=== PATIENT | female | born 1975 | race Caucasian/White ===

== ENCOUNTER 2020-09-14 22:09 | Emergency (ER) | payer BC ==
[~2020-09-14] VITALS: Ht 167.6 cm; Wt 84.0 kg
[2020-09-15 01:35] VITALS: BP 118/70
== END 2020-09-15 01:35 | disposition home or self-care (01) ==
LOC: ER 22:09
DX: T40.7X1A Poisoning by cannabis (derivatives), accidental (unintentional), initial encounter (principal); I10 Essential (primary) hypertension; Y92.89 Other specified places as the place of occurrence of the external cause
CPT/HCPCS: 93005; 99283

== ENCOUNTER 2022-01-20 13:00 | Inpatient (IN) | payer BC ==
[~2022-01-20] VITALS: Ht 165.1 cm; Wt 78.5 kg
[2022-01-20] MEDS ORDERED: MORPHINE SULFATE 4 MG/ML CPJ (NOT FOR IM USE) IV STA (13:27)
[2022-01-20] MEDS ORDERED: ONDANSETRON HCL 4MG/2ML INJ IV STA (13:27)
[2022-01-20] MEDS ORDERED: SODIUM CHLORIDE 0.9% 1,000 ML IV ONE (13:30)
[2022-01-20 13:40] LABS: CLARITY URINE CLEAR (CLEAR); COLOR URINE YELLOW (YELLOW); KETONES URINE TRACE (NEGATIVE); LEUKOCYTE ESTERASE URINE NEGATIVE (NEGATIVE); NITRITE URINE NEGATIVE (NEGATIVE); OCCULT BLOOD URINE NEGATIVE (NEGATIVE); PROTEIN URINE NEGATIVE (NEGATIVE); SPECIFIC GRAVITY URINE 1.023 (1.005-1.030); UROBILINOGEN URINE 0.2 E.U./dL (0.2-1.0)
[2022-01-20 14:30] LABS: BASOPHILS % 0.3 % (0.0-2.0); EOSINOPHILS % 0.3 % (0.0-5.0); HEMATOCRIT. 39.3 % (36.0-48.0); HEMOGLOBIN. 13.1 g/dL (12.0-16.0); LYMPHOCYTES % 18.3 % (20.0-50.0); MEAN CORPUSCULAR HEMOGLOBIN 29.4 pg (28.0-32.0); MEAN CORPUSCULAR VOLUME 88.1 fL (81.0-99.0); MONOCYTES % 3.4 % (2.0-8.0); NEUTROPHILS % 77.7 % (40.0-76.0); PLATELET 228 x1000/uL (130-400); RED BLOOD CELL COUNT 4.46 mill/uL (4.2-5.4); RED CELL DISTRIBUTION WIDTH 13.2 % (11.6-14.6)
[2022-01-20 14:32] LABS: CHLORIDE 108 mEq/L (98-107)
[2022-01-20 14:36] LABS: HCG SCREEN NEGATIVE
[2022-01-20] MEDS ORDERED: MORPHINE SULFATE 4 MG/ML CPJ (NOT FOR IM USE) IV ONE (16:00)
[2022-01-20] MEDS ORDERED: DOCUSATE SODIUM 100MG CAPSULE PO PRN (19:30)
[2022-01-20] MEDS ORDERED: ACETAMINOPHEN 325MG TABLET PO PRN ×2 (19:30)
[2022-01-20] MEDS ORDERED: MAGNESIUM/ALUMINUM HYDROXIDE/SIMETHICONE 30ML UDC PO PRN (19:30)
[2022-01-20] MEDS ORDERED: GUAIFENESIN 200MG/10ML SUGAR FREE UDC PO PRN (19:30)
[2022-01-20] MEDS ORDERED: CLONIDINE 0.1MG TABLET PO PRN (19:30)
[2022-01-20] MEDS ORDERED: ZOLPIDEM TARTRATE 5MG TABLET PO PRN (19:30)
[2022-01-20] MEDS ORDERED: ONDANSETRON HCL 4MG/2ML INJ IV PRN (19:30)
[2022-01-20] MEDS ORDERED: NITROGLYCERIN 0.4MG TABLET SL SL PRN (19:30)
[2022-01-20] MEDS ORDERED: IPRATROPIUM/ALBUTEROL 0.5-3(2.5)MG/3ML NEB NEB PRN (19:30)
[2022-01-20] MEDS: ENOXAPARIN 40MG/0.4ML SYR SUBCUT SCH (20:05)
[2022-01-20] MEDS: KETOROLAC 15MG/ML VIAL IV PRN (20:06)
[2022-01-20] MEDS: DEXT 5%/LACTATED RINGERS 1,000 ML IV SCH (20:07)
[2022-01-20] MEDS: MORPHINE SULFATE 2 MG/ML CPJ (NOT FOR IM USE) IV PRN (22:29)
[2022-01-21 04:35] LABS: BASOPHILS % 0.3 % (0.0-2.0); EOSINOPHILS % 1.2 % (0.0-5.0); HEMATOCRIT. 31.2 % (36.0-48.0); HEMOGLOBIN. 10.7 g/dL (12.0-16.0); LYMPHOCYTES % 51.4 % (20.0-50.0); MEAN CORPUSCULAR HEMOGLOBIN 30.3 pg (28.0-32.0); MEAN CORPUSCULAR VOLUME 88.7 fL (81.0-99.0); MEAN PLATELET VOLUME 8.9 fl (7.4-10.4); MONOCYTES % 4.8 % (2.0-8.0); NEUTROPHILS % 42.3 % (40.0-76.0); PLATELET 188 x1000/uL (130-400); RED BLOOD CELL COUNT 3.52 mill/uL (4.2-5.4); RED CELL DISTRIBUTION WIDTH 12.9 % (11.6-14.6)
[2022-01-21 04:51] LABS: CHLORIDE 112 mEq/L (98-107)
[2022-01-21] MEDS ORDERED: NALOXONE HCL 0.4MG/ML VIAL IV PRN (08:45)
[2022-01-21 08:50] VITALS: BP 115/51
[2022-01-21] MEDS: DEXT 5%/LACTATED RINGERS 1,000 ML IV SCH (09:17)
[2022-01-21] MEDS: PANTOPRAZOLE SODIUM 40 MG/VIAL IV SCH (09:18)
[2022-01-21] MEDS: TRAMADOL 50MG TABLET PO PRN (09:19)
[2022-01-21] MEDS: KETOROLAC 15MG/ML VIAL IV PRN ×2 (13:41→20:28)
[2022-01-21 16:00] VITALS: BP 118/64
[2022-01-21] MEDS ORDERED: HYDR25TA PO (16:53)
[2022-01-21] MEDS ORDERED: LISI40TA13 PO (16:53)
[2022-01-21 20:00] VITALS: BP 121/62
[2022-01-21] MEDS: ENOXAPARIN 40MG/0.4ML SYR SUBCUT SCH (20:25)
[2022-01-22] VITALS: BP 116/63
[2022-01-22] MEDS: DEXT 5%/LACTATED RINGERS 1,000 ML IV SCH ×2 (03:51→12:27)
[2022-01-22 03:56] VITALS: BP 118/61
[2022-01-22 06:26] LABS: BASOPHILS % 0.3 % (0.0-2.0); EOSINOPHILS % 1.6 % (0.0-5.0); HEMATOCRIT. 32.9 % (36.0-48.0); HEMOGLOBIN. 11.1 g/dL (12.0-16.0); LYMPHOCYTES % 49.5 % (20.0-50.0); MEAN CORPUSCULAR HEMOGLOBIN 29.7 pg (28.0-32.0); MEAN CORPUSCULAR VOLUME 88.1 fL (81.0-99.0); MEAN PLATELET VOLUME 8.8 fl (7.4-10.4); MONOCYTES % 5.1 % (2.0-8.0); NEUTROPHILS % 43.5 % (40.0-76.0); PLATELET 197 x1000/uL (130-400); RED BLOOD CELL COUNT 3.74 mill/uL (4.2-5.4); RED CELL DISTRIBUTION WIDTH 12.9 % (11.6-14.6)
[2022-01-22 06:49] LABS: CHLORIDE 112 mEq/L (98-107)
[2022-01-22] MEDS: KETOROLAC 15MG/ML VIAL IV PRN ×2 (07:11→20:16)
[2022-01-22 08:00] VITALS: BP 121/71
[2022-01-22] MEDS: PANTOPRAZOLE SODIUM 40 MG/VIAL IV SCH (09:02)
[2022-01-22] MEDS: MORPHINE SULFATE 2 MG/ML CPJ (NOT FOR IM USE) IV PRN (09:03)
[2022-01-22 12:00] VITALS: BP 117/64
[2022-01-22 16:00] VITALS: BP 119/83
[2022-01-22 20:00] VITALS: BP 144/99
[2022-01-22] MEDS: ENOXAPARIN 40MG/0.4ML SYR SUBCUT SCH (20:16)
[2022-01-22] MEDS: FAMOTIDINE 20MG/2ML VIAL IV SCH (20:16)
[2022-01-23] VITALS: BP 139/79
[2022-01-23] MEDS: DEXT 5%/LACTATED RINGERS 1,000 ML IV SCH (00:22)
[2022-01-23 04:00] VITALS: BP 119/55
[2022-01-23 06:37] LABS: BASOPHILS % 0.3 % (0.0-2.0); EOSINOPHILS % 1.8 % (0.0-5.0); HEMATOCRIT. 33.9 % (36.0-48.0); HEMOGLOBIN. 11.3 g/dL (12.0-16.0); MEAN CORPUSCULAR HEMOGLOBIN 29.3 pg (28.0-32.0); MEAN CORPUSCULAR VOLUME 87.5 fL (81.0-99.0); MEAN PLATELET VOLUME 9.1 fl (7.4-10.4); MONOCYTES % 4.5 % (2.0-8.0); NEUTROPHILS % 35.4 % (40.0-76.0); PLATELET 205 x1000/uL (130-400); RED BLOOD CELL COUNT 3.87 mill/uL (4.2-5.4); RED CELL DISTRIBUTION WIDTH 12.9 % (11.6-14.6)
[2022-01-23 06:48] LABS: CHLORIDE 110 mEq/L (98-107)
[2022-01-23 07:50] VITALS: BP 114/64
[2022-01-23] MEDS: FAMOTIDINE 20MG/2ML VIAL IV SCH (08:17)
[2022-01-23] MEDS: TRAMADOL 50MG TABLET PO PRN (08:25)
[2022-01-23 11:18] VITALS: BP 114/64
== END 2022-01-23 11:38 | disposition home or self-care (01) | DRG 446 ==
LOC: ER 13:00 → MICUSO 18:00 → EDBEDREQ 18:58 → 6EST 01-21 08:14
PROVIDERS: ADMIT Internal Medicine; ATTEND Internal Medicine
DX: K80.20 Calculus of gallbladder without cholecystitis without obstruction (principal); I10 Essential (primary) hypertension; Z20.822 Contact with and (suspected) exposure to COVID-19; K21.9 Gastro-esophageal reflux disease without esophagitis; K59.00 Constipation, unspecified; Z98.891 History of uterine scar from previous surgery
CPT/HCPCS: 36415; 74181; 76705; 80048; 80053; 80076; 81003; 83735; 84100; 84703; 85025; 87426; 93005; 93970; 99285; C9113; J1650; J1885; J2270; J2405; J3490; J7030